=== PATIENT | male | born 1930 | race Two or more races ===

== ENCOUNTER 2017-06-22 21:56 | Emergency (ER) | payer MEDICARE, MEDICAID ==
[~2017-06-22] VITALS: Ht 160 cm; Wt 59.0 kg
[2017-06-22] MEDS ORDERED: XARELTO (22:18)
--- NOTE | 2017-06-22 22:36 | NUR ---
Patient out of unit for ct scan via [place]
[2017-06-22 22:40] LABS: BASOPHILS % (AUTO) 0.3 % (0.0-2.0); EOSINOPHILS # (AUTO) 0.2 K/uL (0.0-0.7); HEMATOCRIT 38.8 % (36.7-47.1); HEMOGLOBIN 12.7 g/dL (12.5-16.3); LYMPHOCYTES # (AUTO) 1.7 K/uL (20.0-40.0); LYMPHOCYTES % (AUTO) 15.5 % (20.5-51.5); MEAN CORPUSCULAR HEMOGLOBIN 28.4 uug (23.8-33.4); MEAN CORPUSCULAR HGB CONC 33 g/dL (32.5-36.3); MEAN CORPUSCULAR VOLUME 86.5 fL (73.0-96.2); MONOCYTES # (AUTO) 0.9 K/uL (2.0-10.0); MONOCYTES % (AUTO) 7.7 % (0.0-11.0); NEUTROPHILS # (AUTO) 8.3 K/uL (1.8-8.9); NEUTROPHILS % (AUTO) 74.5 % (38.5-71.5); PLATELET COUNT (AUTO) 151 K/uL (152-348); RED BLOOD CELL COUNT(AUTO) 4.49 MIL/uL (4.06-5.63); WHITE BLOOD COUNT (AUTO) 11.1 K/uL (3.6-10.2)
--- NOTE | 2017-06-22 22:52 | NUR ---
patient back from ct scan with no distress noted
[2017-06-22 22:55] LABS: ALANINE AMINOTRANSFERASE 27 U/L (16-63); ALKALINE PHOSPHATASE 77 U/L (50-136); ASPARTATE AMINOTRANSFERASE 18 U/L (15-37); BILIRUBIN,DIRECT 0.3 mg/dL (0.0-0.2); BILIRUBIN,TOTAL 0.9 mg/dL (0.2-1.0); CARBON DIOXIDE 31 mmol/L (21-32); CHLORIDE 100 mmol/L (98-107); CREATININE 1.2 mg/dL (0.6-1.3); GLUCOSE 121 mg/dL (74-106); POTASSIUM 4.4 mmol/L (3.5-5.1); TOTAL PROTEIN, SERUM 7.3 g/dL (6.4-8.2); UREA NITROGEN, BLOOD 22 mg/dL (7-18)
[2017-06-22] MEDS ORDERED: FURO40TA5 PO (23:32)
[2017-06-22] MEDS ORDERED: METO100T14 PO (23:32)
[2017-06-22] MEDS ORDERED: AMIO200T2 PO (23:32)
[2017-06-22] MEDS ORDERED: LEVO100T10 PO (23:32)
[2017-06-22] MEDS ORDERED: ENAL5TAB PO (23:32)
[2017-06-22] MEDS ORDERED: RIVA10TA PO (23:32)
[2017-06-22] MEDS ORDERED: ALLO300T2 PO (23:32)
[2017-06-22] MEDS ORDERED: IV NORMAL SALINE 1000 ML BAG IV ONE (23:45)
[2017-06-22] MEDS ORDERED: IOHEXOL 350 100 ML INFUS..BTL ONE (23:53)
[2017-06-22] MEDS ORDERED: NORMAL SALINE FLUSH 10 ML DISP.SYRIN ONE (23:53)
[2017-06-22] MEDS ORDERED: IV NORMAL SALINE 100 ML ONE (23:53)
[2017-06-23] MEDS ORDERED: CLINDAMYCIN HCL 150 MG CAPSULE PO ONE (01:00)
[2017-06-23] MEDS ORDERED: CLINDAMYCIN HCL 150 MG CAPSULE ONE (01:12)
--- NOTE | 2017-06-23 02:04 | NUR ---
IV removed. Catheter intact and site benign. Pressure and 4x4 gauze applied to site. No bleeding noted.
--- NOTE | 2017-06-23 02:08 | NUR ---
Patient discharged to home in stable conditon with family taking patient home. Written and verbal after care instructions given. Patient verbalizes understanding of instructions.
[2017-06-23 02:09] VITALS: BP 140/70
== END 2017-06-23 02:10 | disposition home or self-care (01) ==
LOC: ER 21:58
DX: L03.115 Cellulitis of right lower limb (principal); L03.116 Cellulitis of left lower limb; Z88.0 Allergy status to penicillin; Z79.01 Long term (current) use of anticoagulants; Z79.899 Other long term (current) drug therapy
CPT/HCPCS: 36415; 70030-TC; 71275; 73700; 83605; 85025; 85730; 87040; A4217; A4663; J3490; J7030; Q9967